=== PATIENT | male | born 1975 | race Caucasian/White ===

== ENCOUNTER 2021-11-12 20:24 | Inpatient (IN) | payer BC, OTHER ==
[2021-11-12] MEDS ORDERED: Lorazepam 2 MG/ML VIAL ONE (20:50)
[2021-11-12 20:59] LABS: #Lymphocytes 0.3 thou/uL (1.20-3.40); #Neutrophils 10.2 thou/uL (1.40-6.50); %Basophils 0.4 % (0.0-1.0); %Eosinophils 0.4 % (0.0-10.0); %Lymphocytes 2.9 % (21.0-51.0); %Monocytes 8.4 % (0.0-10.0); Hemoglobin 12.9 g/dL (14.0-18.0); Mean Corpuscular HGB CONC 33.8 g/dL (32.0-36.0); Mean Corpuscular Hemoglobin 32.3 pg (27.0-31.0); Mean Corpuscular Volume 95.5 fL (78.0-98.0); Platelet Count 143 thou/uL (130-400); RBC Distribution Width 12.6 % (11.5-14.5); White Blood Cell (WBC) Count 11.6 thou/uL (4.8-10.8)
[2021-11-12] MEDS ORDERED: chlordiazePOXIDE HCl 25 MG CAP PO SCH (21:15)
[2021-11-12 21:19] LABS: ALT (SGPT) 101 U/L (8-55); AST (SGOT) 143 U/L (5-34); Albumin 4.6 g/dL (3.5-5.0); Alkaline Phosphatase 66 U/L (40-110); Anion Gap 20 mmol/L (10-20); BUN (Urea Nitrogen) 7 mg/dL (8.9-20.6); Calc. Creatinine Clearance 0 mL/min (70-130); Calcium 10.2 mg/dL (7.8-10.44); Carbon Dioxide 21 mmol/L (22-29); Chloride 100 mmol/L (98-107); Glucose 185 mg/dL (70-105); Potassium 3.7 mmol/L (3.5-5.1); Protein, Total 7.6 g/dL (6.0-8.3); Sodium 137 mmol/L (136-145)
[2021-11-12] MEDS ORDERED: cefTRIAXone\\ROCEPHIN 2 GM VIAL ONE ×2 (21:40→21:41)
[2021-11-12] MEDS ORDERED: Vancomycin HCl 500 MG VIAL ONE (22:30)
[2021-11-13 00:01] LABS: Lactic Acid 1.6 mmol/L (0.5-2.2)
[2021-11-13 00:46] LABS: Bilirubin Negative (Negative); Blood, Urine Negative (Negative); Clarity Clear (Clear); Glucose, Urine (Dipstick) Normal (Negative); Ketone, Urine Trace mg/dL (Negative); Leukocyte Negative Leu/uL (Negative); Nitrite Negative (Negative); Protein, Urine (Dipstick) 10 mg/dL (Neg-Trace); Specific Gravity, Urine 1.006 (1.002-1.036); Urobilinogen Normal mg/dL (Less than 2)
[2021-11-13 00:55] LABS: Amphetamine Not Detected (NotDetected); Barbiturates Screen Not Detected (NotDetected); Benzodiazepine Screen Detected (NotDetected); Cocaine Metabolite Screen Not Detected (NotDetected); Methadone Not Detected (NotDetected); Methamphetamine Not Detected (NotDetected); Opiate Screen Not Detected (NotDetected); Oxycodone Screen Not Detected (NotDetected); Phencyclidine (PCP) Not Detected (NotDetected); THC/Cannabinoid Screen Not Detected (NotDetected); Tricyclic Screen Not Detected (NotDetected)
[2021-11-13] MEDS ORDERED: chlordiazePOXIDE HCl 25 MG CAP PO PRN (02:54)
[2021-11-13] MEDS ORDERED: Ondansetron PF 4 MG/2 ML Vial IVP PRN ×2 (03:00→09:25)
[2021-11-13] MEDS ORDERED: Ondansetron ODT 4 MG TAB SL PRN (03:00)
[2021-11-13] MEDS ORDERED: Sodium Chloride 0.9% 1,000 ML IV SCH (03:00)
[2021-11-13] MEDS ORDERED: Acetaminophen 325 MG TAB PO PRN ×3 (03:00→09:28)
[2021-11-13] MEDS ORDERED: Acetaminophen 325 MG TAB ONE (07:35)
[2021-11-13] MEDS ORDERED: Calcium Carbonate 500 MG ChewTAB PO PRN (09:25)
[2021-11-13] MEDS ORDERED: Senokot S 8.6-50 MG TAB PO PRN (09:25)
[2021-11-13] MEDS ORDERED: Ondansetron ODT 4 MG TAB PO PRN (09:25)
[2021-11-13] MEDS ORDERED: Lorazepam 1 MG TAB PO PRN (09:30)
[2021-11-13] MEDS ORDERED: Electrolyte Replacement Protocol 1 EACH FS SCH (09:30)
[2021-11-13] MEDS ORDERED: Multivitamins, Adult 10 ML, Folic Acid 1 MG in Dextrose 5 %-0.45 % NaCl 1,000 ML IV SCH (10:00)
[2021-11-13 10:19] LABS: Anion Gap 11 mmol/L (10-20); BUN (Urea Nitrogen) 6 mg/dL (8.9-20.6); CRP (Inflammatory) 6.78 mg/dL (= or < 0.5); Calc. Creatinine Clearance 0 mL/min (70-130); Calcium 8.7 mg/dL (7.8-10.44); Carbon Dioxide 26 mmol/L (22-29); Chloride 105 mmol/L (98-107); Glucose 96 mg/dL (70-105); Potassium 3.4 mmol/L (3.5-5.1); Sodium 139 mmol/L (136-145)
[2021-11-13 10:30] LABS: Magnesium 2.1 mg/dL (1.6-2.6); Phosphorus 4.1 mg/dL (2.3-4.7)
[2021-11-13] MEDS ORDERED: Lorazepam 1 MG TAB ONE ×2 (11:03→16:32)
[2021-11-13] MEDS: Lorazepam 1 MG TAB PO SCH ×3 (11:12→21:58)
[2021-11-13] MEDS ORDERED: Multivitamins, Adult 10 ML, Folic Acid 1 MG, Thiamine HCl 100 MG in Dextrose 5 %-0.45 %... IV SCH (12:00)
[2021-11-13 12:10] LABS: SARS-CoV-2 PCR by NAA Not Detected (NotDetected)
[2021-11-13] MEDS ORDERED: Potassium Chloride 20 MEQ TAB ONE ×2 (13:23→17:15)
[2021-11-13] MEDS: Potassium Chloride 20 MEQ TAB PO SCH ×2 (13:38→17:19)
[2021-11-13 20:28] VITALS: BMI 25.2
[2021-11-13] MEDS: Famotidine 20 MG TAB PO SCH (20:47)
[2021-11-13] MEDS: Enoxaparin Sodium 40 MG/0.4 ML SYRINGE SC SCH (20:47)
[2021-11-13] MEDS ORDERED: cefTRIAXone\\ROCEPHIN 2 GM in Sodium Chloride 0.9% 100 ML IVPB SCH (21:00)
[2021-11-13] MEDS: NS 0.9% w/ 20 MEQ KCL 1,000 ML/1,000 ML BAG IV SCH (22:00)
[2021-11-14] MEDS: Lorazepam 1 MG TAB PO SCH ×3 (04:39→17:11)
[2021-11-14 05:50] LABS: ALT (SGPT) 60 U/L (8-55); AST (SGOT) 64 U/L (5-34); Albumin 3.7 g/dL (3.5-5.0); Alkaline Phosphatase 53 U/L (40-110); Anion Gap 14 mmol/L (10-20); BUN (Urea Nitrogen) 6 mg/dL (8.9-20.6); Bilirubin, Total 0.6 mg/dL (0.2-1.2); Calc. Creatinine Clearance 143 mL/min (70-130); Calcium 9.1 mg/dL (7.8-10.44); Carbon Dioxide 24 mmol/L (22-29); Chloride 106 mmol/L (98-107); Globulin 2.7 g/dL (2.4-3.5); Glucose 91 mg/dL (70-105); Potassium 3.5 mmol/L (3.5-5.1); Protein, Total 6.4 g/dL (6.0-8.3); Sodium 140 mmol/L (136-145)
[2021-11-14 05:52] LABS: Band 17 % (5-11); Hemoglobin 11.9 g/dL (14.0-18.0); Lymphocytes 14 % (21-51); MDiff Complete? YES; Mean Corpuscular HGB CONC 33.3 g/dL (32.0-36.0); Mean Corpuscular Hemoglobin 32.6 pg (27.0-31.0); Mean Corpuscular Volume 97.9 fL (78.0-98.0); Mean Platelet Volume 6.8 fL (7.4-10.4); Monocytes 11 % (0-10); Neutrophil 57 % (42-75); Platelet Count 133 thou/uL (130-400); RBC Distribution Width 12.4 % (11.5-14.5); Reactive Lymphocytes 1 % (0-10); Red Blood Cell (RBC) Count 3.65 mill/uL (4.70-6.10); White Blood Cell (WBC) Count 7.8 thou/uL (4.8-10.8)
[2021-11-14] MEDS: Multivit, Therapeutic 1 TAB PO SCH (08:28)
[2021-11-14] MEDS: Folic Acid 1 MG TAB PO SCH (08:28)
[2021-11-14] MEDS: Thiamine HCl 200 MG/2 ML VIAL SLOW IVP SCH (08:28)
[2021-11-14] MEDS: Thiamine 100 MG TAB PO SCH (08:28)
[2021-11-14] MEDS ORDERED: Enoxaparin Sodium 40 MG/0.4 ML SYRINGE SC SCH (09:00)
[2021-11-14] MEDS ORDERED: Lorazepam 1 MG TAB PO PRN (09:30)
[2021-11-14] MEDS: Famotidine 20 MG TAB PO SCH ×2 (10:19→20:29)
[2021-11-14] MEDS ORDERED: levETIRAcetam 500 MG TAB PO SCH (18:00)
[2021-11-14] MEDS: NS 0.9% w/ 20 MEQ KCL 1,000 ML/1,000 ML BAG IV SCH (19:32)
[2021-11-14] MEDS: levETIRAcetam 500 MG TAB PO SCH (20:29)
[2021-11-14] MEDS: Enoxaparin Sodium 40 MG/0.4 ML SYRINGE SC SCH (20:29)
[2021-11-14] MEDS: Propranolol 10 MG TAB PO PRN (20:29)
[2021-11-15] MEDS ORDERED: Potassium Chloride 20 MEQ TAB PO SCH (05:45)
[2021-11-15] MEDS ORDERED: Lorazepam 0.5 MG TAB PO SCH (09:30)
[2021-11-15] MEDS ORDERED: Lorazepam 1 MG TAB PO PRN (09:30)
[2021-11-15] MEDS: levETIRAcetam 500 MG TAB PO SCH (11:03)
[2021-11-15] MEDS: Multivit, Therapeutic 1 TAB PO SCH (11:03)
[2021-11-15] MEDS: Famotidine 20 MG TAB PO SCH (11:04)
[2021-11-15] MEDS: Folic Acid 1 MG TAB PO SCH (11:05)
[2021-11-15] MEDS: Thiamine 100 MG TAB PO SCH (11:05)
[2021-11-15] MEDS: Thiamine HCl 200 MG/2 ML VIAL SLOW IVP SCH (11:06)
[2021-11-15 11:32] LABS: ALT (SGPT) 67 U/L (8-55); AST (SGOT) 75 U/L (5-34); Albumin 4.3 g/dL (3.5-5.0); Alkaline Phosphatase 62 U/L (40-110); Bilirubin, Direct 0.3 mg/dL (0.1-0.3); Bilirubin, Total 0.6 mg/dL (0.2-1.2); Protein, Total 7.7 g/dL (6.0-8.3)
[2021-11-15 12:04] VITALS: BP 121/83; TEMP 97.6
[2021-11-15] MEDS: Propranolol 10 MG TAB PO PRN (14:09)
[2021-11-16] MEDS ORDERED: Lorazepam 0.5 MG TAB PO PRN (09:30)
== END 2021-11-15 15:45 | DRG 896 ==
LOC: ERS 20:24 → ERHOLD 22:29 → NEURO 11-13 18:37
PROVIDERS: ADMIT Internal Medicine; ATTEND Internal Medicine
PROC: HZ2ZZZZ Detoxification Services for Substance Abuse Treatment (ICD-10-PCS; principal; 2021-11-14)
DX: F10.239 Alcohol dependence with withdrawal, unspecified (principal); G92.8 Other toxic encephalopathy; L03.116 Cellulitis of left lower limb; L03.115 Cellulitis of right lower limb; N17.9 Acute kidney failure, unspecified; E87.1 Hypo-osmolality and hyponatremia; R65.10 Systemic inflammatory response syndrome (SIRS) of non-infectious origin without acute organ dysfunction; Z20.822 Contact with and (suspected) exposure to COVID-19; R56.9 Unspecified convulsions; E86.0 Dehydration; D53.9 Nutritional anemia, unspecified; G24.9 Dystonia, unspecified
CPT/HCPCS: 36415; 80048; 80053; 80076; 80306; 81003; 83605; 83735; 84100; 85025; 86140; 87040; 93005; 93970; J0696; J1650; J2060; J3370; J3411; J3480; J3490; J7042; J7050; U0003; U0005

== ENCOUNTER 2022-06-22 16:38 | Inpatient (IN) | payer BC, SELFPAY ==
[2022-06-22] MEDS ORDERED: Pantoprazole 40 MG VIAL ONE (17:15)
[2022-06-22] MEDS ORDERED: Lidocaine Viscous Sol 2% 15 ml UD Cup ONE (17:15)
[2022-06-22] MEDS ORDERED: Mag-Al 1200 mg/1200 mg/30 ML UDCUP ONE (17:15)
[2022-06-22] MEDS ORDERED: Midazolam HCl 2 mg/2 ml Vial ONE (17:15)
[2022-06-22 17:42] LABS: #Lymphocytes 1.3 thou/uL (1.20-3.40); #Monocytes 0.8 thou/uL (0.11-0.59); #Neutrophils 3.9 thou/uL (1.40-6.50); %Basophils 0.7 % (0.0-1.0); %Eosinophils 0.4 % (0.0-10.0); %Lymphocytes 20.9 % (21.0-51.0); %Neutrophils 65.1 % (42.0-75.0); Hemoglobin 8.7 g/dL (14.0-18.0); Mean Corpuscular HGB CONC 34.5 g/dL (32.0-36.0); Mean Corpuscular Hemoglobin 33.8 pg (27.0-31.0); Mean Corpuscular Volume 98.1 fL (78.0-98.0); Mean Platelet Volume 7.6 fL (7.4-10.4); Platelet Count 144 thou/uL (130-400); RBC Distribution Width 11.9 % (11.5-14.5); Red Blood Cell (RBC) Count 2.57 mill/uL (4.70-6.10); White Blood Cell (WBC) Count 6.1 thou/uL (4.8-10.8)
[2022-06-22] MEDS ORDERED: chlordiazePOXIDE HCl 25 MG CAP PO SCH ×2 (17:45→21:00)
[2022-06-22 17:53] LABS: PTT 26.4 sec (22.9-36.1); Prothrombin Time 13.6 sec (12.0-14.7)
[2022-06-22 18:01] LABS: Acetaminophen Less than 10.0 mcg/mL (10.0-30.0); Alcohol 226 mg/dL (Less than 10); Salicylate Less than 8.0 mg/dL (15.0-30.0)
[2022-06-22 18:03] LABS: ALT (SGPT) 77 U/L (8-55); AST (SGOT) 80 U/L (5-34); Albumin 4.4 g/dL (3.5-5.0); Alkaline Phosphatase 46 U/L (40-110); Anion Gap 20 mmol/L (10-20); BUN (Urea Nitrogen) 14 mg/dL (8.9-20.6); Bilirubin, Total 0.8 mg/dL (0.2-1.2); Calc. Creatinine Clearance 0 mL/min (70-130); Calcium 9.1 mg/dL (7.8-10.44); Carbon Dioxide 23 mmol/L (22-29); Chloride 90 mmol/L (98-107); Estimated GFR 112; Globulin 2.4 g/dL (2.4-3.5); Glucose 92 mg/dL (70-105); Lipase 50 U/L (8-78); Protein, Total 6.8 g/dL (6.0-8.3); Sodium 130 mmol/L (136-145)
[2022-06-22 18:14] LABS: Potassium 2.8 mmol/L (3.5-5.1)
[2022-06-22] MEDS ORDERED: Midazolam HCl 2 mg/2 ml Vial IVP SCH (19:15)
[2022-06-22] MEDS ORDERED: Potassium Chloride 40 MEQ in Sodium Chloride 0.9% 250 ML 250 ML IVPB SCH (19:15)
[2022-06-22] MEDS ORDERED: Lidocaine 2% Viscous Solution 10 ML, Aluminum & Magnesium Hydroxide 30 ML SSW SCH (19:15)
[2022-06-22] MEDS ORDERED: Sodium Chloride 0.45% 1,000 ML IV SCH (19:15)
[2022-06-22] MEDS ORDERED: Sodium Chloride 0.9% 1,000 ML IV SCH (19:15)
[2022-06-22] MEDS ORDERED: Ondansetron ODT 4 MG TAB PO PRN (20:07)
[2022-06-22] MEDS ORDERED: Lorazepam 1 MG TAB PO PRN (20:07)
[2022-06-22] MEDS ORDERED: Lorazepam 2 MG/ML VIAL IM PRN (20:07)
[2022-06-22] MEDS ORDERED: Electrolyte Replacement Protocol 1 EACH FS SCH (20:15)
[2022-06-22] MEDS ORDERED: Lorazepam 1 MG TAB PO SCH (20:15)
[2022-06-22 20:38] LABS: Hemoglobin 7.9 g/dL (14.0-18.0); Mean Corpuscular Hemoglobin 33.7 pg (27.0-31.0); Mean Corpuscular Volume 99.1 fL (78.0-98.0); Mean Platelet Volume 6.9 fL (7.4-10.4); Platelet Count 108 thou/uL (130-400); Red Blood Cell (RBC) Count 2.35 mill/uL (4.70-6.10); White Blood Cell (WBC) Count 4.1 thou/uL (4.8-10.8)
[2022-06-22 21:26] LABS: SARS-CoV-2 NAA Rapid Test Not Detected (NotDetected)
[2022-06-22] MEDS ORDERED: Potassium Chloride 20 MEQ TAB PO SCH (23:00)
[2022-06-22] MEDS: Lactated Ringer's 1,000 ML IV SCH (23:01)
[2022-06-22] MEDS: Pantoprazole 40 MG VIAL IVP SCH (23:02)
[2022-06-22] MEDS: Thiamine HCl 200 MG/2 ML VIAL SLOW IVP SCH (23:06)
[2022-06-23 00:49] LABS: Hemoglobin 7.8 g/dL (14.0-18.0); Mean Platelet Volume 7.2 fL (7.4-10.4); Platelet Count 113 thou/uL (130-400); RBC Distribution Width 11.9 % (11.5-14.5); Red Blood Cell (RBC) Count 2.22 mill/uL (4.70-6.10); White Blood Cell (WBC) Count 3.2 thou/uL (4.8-10.8)
[2022-06-23 01:18] LABS: Anion Gap 16 mmol/L (10-20); BUN (Urea Nitrogen) 10 mg/dL (8.9-20.6); Calc. Creatinine Clearance 0 mL/min (70-130); Calcium 8.7 mg/dL (7.8-10.44); Carbon Dioxide 24 mmol/L (22-29); Chloride 103 mmol/L (98-107); Estimated GFR 114; Glucose 82 mg/dL (70-105); Sodium 139 mmol/L (136-145)
[2022-06-23] MEDS ORDERED: Octreotide Acetate 1,000 mcg/ml Multi-Dose Vial IV SCH (01:45)
[2022-06-23] MEDS ORDERED: Octreotide Acetate 1,250 MCG in Sodium Chloride 0.9% 250 ML 250 ML IVPB SCH (01:45)
[2022-06-23] MEDS ORDERED: Octreotide Acetate 100 MCG/ML VIAL SLOW IVP SCH (01:45)
[2022-06-23] MEDS: chlordiazePOXIDE HCl 25 MG CAP PO SCH ×6 (04:55→21:19)
[2022-06-23 04:58] LABS: #Lymphocytes 1.2 thou/uL (1.20-3.40); #Monocytes 0.3 thou/uL (0.11-0.59); #Neutrophils 1.4 thou/uL (1.40-6.50); %Basophils 1.2 % (0.0-1.0); %Eosinophils 0.9 % (0.0-10.0); %Lymphocytes 41.3 % (21.0-51.0); %Monocytes 9.7 % (0.0-10.0); %Neutrophils 46.8 % (42.0-75.0); Hemoglobin 7.4 g/dL (14.0-18.0); Mean Corpuscular HGB CONC 33.9 g/dL (32.0-36.0); Mean Corpuscular Hemoglobin 33.9 pg (27.0-31.0); Mean Platelet Volume 7.2 fL (7.4-10.4); Platelet Count 111 thou/uL (130-400); Red Blood Cell (RBC) Count 2.18 mill/uL (4.70-6.10); White Blood Cell (WBC) Count 2.9 thou/uL (4.8-10.8)
[2022-06-23 05:13] LABS: ALT (SGPT) 80 U/L (8-55); AST (SGOT) 142 U/L (5-34); Albumin 3.8 g/dL (3.5-5.0); Alcohol Less than 10 mg/dL (Less than 10); Alkaline Phosphatase 37 U/L (40-110); Anion Gap 14 mmol/L (10-20); BUN (Urea Nitrogen) 9 mg/dL (8.9-20.6); Bilirubin, Total 0.8 mg/dL (0.2-1.2); Calc. Creatinine Clearance 0 mL/min (70-130); Calcium 8.6 mg/dL (7.8-10.44); Carbon Dioxide 25 mmol/L (22-29); Chloride 105 mmol/L (98-107); Estimated GFR 115; Globulin 1.9 g/dL (2.4-3.5); Glucose 81 mg/dL (70-105); Potassium 4.2 mmol/L (3.5-5.1); Protein, Total 5.7 g/dL (6.0-8.3); Sodium 140 mmol/L (136-145)
[2022-06-23] MEDS: Lactated Ringer's 1,000 ML IV SCH ×3 (05:17→22:33)
[2022-06-23 08:43] LABS: Amphetamine Not Detected (NotDetected); Barbiturates Screen Not Detected (NotDetected); Benzodiazepine Screen Detected (NotDetected); Cocaine Metabolite Screen Not Detected (NotDetected); Methadone Not Detected (NotDetected); Methamphetamine Not Detected (NotDetected); Opiate Screen Not Detected (NotDetected); Oxycodone Screen Not Detected (NotDetected); Phencyclidine (PCP) Not Detected (NotDetected); THC/Cannabinoid Screen Not Detected (NotDetected); Tricyclic Screen Not Detected (NotDetected)
[2022-06-23] MEDS: Folic Acid 1 MG TAB PO SCH (09:31)
[2022-06-23] MEDS: Multivit, Therapeutic 1 TAB PO SCH (09:31)
[2022-06-23] MEDS: Pantoprazole 40 MG VIAL IVP SCH ×2 (09:31→21:19)
[2022-06-23] MEDS ORDERED: chlordiazePOXIDE HCl 25 MG CAP PO SCH (12:00)
[2022-06-23 15:37] LABS: Mean Corpuscular HGB CONC 33.5 g/dL (32.0-36.0); Mean Corpuscular Hemoglobin 34.1 pg (27.0-31.0); Mean Platelet Volume 7.1 fL (7.4-10.4); Platelet Count 139 thou/uL (130-400); Red Blood Cell (RBC) Count 2.35 mill/uL (4.70-6.10)
[2022-06-23] MEDS ORDERED: Fentanyl 100 MCG/2 ML VIAL ONE (15:44)
[2022-06-23] MEDS ORDERED: SUGAMMADEX SODIUM 200 MG/2 ML VIAL ONE (15:45)
[2022-06-23 15:58] LABS: Anion Gap 17 mmol/L (10-20); BUN (Urea Nitrogen) 9 mg/dL (8.9-20.6); Calc. Creatinine Clearance 0 mL/min (70-130); Calcium 8.7 mg/dL (7.8-10.44); Carbon Dioxide 22 mmol/L (22-29); Chloride 102 mmol/L (98-107); Estimated GFR 111; Glucose 94 mg/dL (70-105); Potassium 4.3 mmol/L (3.5-5.1); Sodium 137 mmol/L (136-145)
[2022-06-23] MEDS ORDERED: PROPOFOL 200 MG/20 ML VIAL ONE (17:16)
[2022-06-23] MEDS ORDERED: Ondansetron PF 4 MG/2 ML Vial ONE (17:16)
[2022-06-23] MEDS ORDERED: Lidocaine 1% MPF 2 ML VIAL ONE (17:16)
[2022-06-23] MEDS ORDERED: Succinylcholine 200 MG/10 ml SYRINGE FS ONE (17:16)
[2022-06-23] MEDS ORDERED: Dexamethasone 20 MG/5 ML VIAL ONE (17:16)
[2022-06-23] MEDS ORDERED: Rocuronium Bromide 10 MG/ML (10ML VIAL) ONE (17:16)
[2022-06-23] MEDS ORDERED: Lorazepam 1 MG TAB PO PRN (20:07)
[2022-06-23 21:01] LABS: Potassium 4.4 mmol/L (3.5-5.1)
[2022-06-23] MEDS: Thiamine HCl 200 MG/2 ML VIAL SLOW IVP SCH (21:19)
[2022-06-24] MEDS: chlordiazePOXIDE HCl 25 MG CAP PO SCH ×4 (03:19→21:13)
[2022-06-24] MEDS: Lactated Ringer's 1,000 ML IV SCH ×2 (03:25→10:15)
[2022-06-24 04:41] LABS: #Eosinphils 0.1 thou/uL (0.0-0.7); #Lymphocytes 0.6 thou/uL (1.20-3.40); #Monocytes 0.3 thou/uL (0.11-0.59); #Neutrophils 3.4 thou/uL (1.40-6.50); %Basophils 0.5 % (0.0-1.0); %Eosinophils 1.5 % (0.0-10.0); %Lymphocytes 14.2 % (21.0-51.0); %Monocytes 7.2 % (0.0-10.0); %Neutrophils 76.5 % (42.0-75.0); Hemoglobin 7.7 g/dL (14.0-18.0); Mean Corpuscular Hemoglobin 34.3 pg (27.0-31.0); Mean Platelet Volume 6.8 fL (7.4-10.4); Platelet Count 144 thou/uL (130-400); RBC Distribution Width 11.9 % (11.5-14.5); Red Blood Cell (RBC) Count 2.25 mill/uL (4.70-6.10); White Blood Cell (WBC) Count 4.5 thou/uL (4.8-10.8)
[2022-06-24 05:04] LABS: ALT (SGPT) 80 U/L (8-55); AST (SGOT) 106 U/L (5-34); Albumin 3.7 g/dL (3.5-5.0); Alkaline Phosphatase 41 U/L (40-110); Anion Gap 13 mmol/L (10-20); BUN (Urea Nitrogen) 7 mg/dL (8.9-20.6); Bilirubin, Total 0.5 mg/dL (0.2-1.2); Calc. Creatinine Clearance 0 mL/min (70-130); Calcium 8.7 mg/dL (7.8-10.44); Carbon Dioxide 26 mmol/L (22-29); Chloride 104 mmol/L (98-107); Estimated GFR 111; Glucose 146 mg/dL (70-105); Potassium 4.2 mmol/L (3.5-5.1); Protein, Total 5.7 g/dL (6.0-8.3); Sodium 139 mmol/L (136-145)
[2022-06-24] MEDS: Folic Acid 1 MG TAB PO SCH (08:36)
[2022-06-24] MEDS: Multivit, Therapeutic 1 TAB PO SCH (08:36)
[2022-06-24] MEDS: Pantoprazole 40 MG VIAL IVP SCH (08:37)
[2022-06-24] MEDS ORDERED: Lorazepam 1 MG TAB PO PRN (20:07)
[2022-06-24] MEDS ORDERED: Lorazepam 0.5 MG TAB PO SCH (20:15)
[2022-06-24] MEDS: Thiamine HCl 200 MG/2 ML VIAL SLOW IVP SCH (21:10)
[2022-06-25 04:33] LABS: #Lymphocytes 1.4 thou/uL (1.20-3.40); #Monocytes 0.4 thou/uL (0.11-0.59); #Neutrophils 2.2 thou/uL (1.40-6.50); %Basophils 0.3 % (0.0-1.0); %Eosinophils 1.1 % (0.0-10.0); %Lymphocytes 33.9 % (21.0-51.0); %Monocytes 10.6 % (0.0-10.0); %Neutrophils 54.1 % (42.0-75.0); Hemoglobin 7.2 g/dL (14.0-18.0); Mean Corpuscular HGB CONC 33.6 g/dL (32.0-36.0); Mean Platelet Volume 6.9 fL (7.4-10.4); Platelet Count 174 thou/uL (130-400); RBC Distribution Width 12.5 % (11.5-14.5); Red Blood Cell (RBC) Count 2.13 mill/uL (4.70-6.10); White Blood Cell (WBC) Count 4.1 thou/uL (4.8-10.8)
[2022-06-25 04:55] LABS: ALT (SGPT) 87 U/L (8-55); AST (SGOT) 138 U/L (5-34); Albumin 3.7 g/dL (3.5-5.0); Alkaline Phosphatase 46 U/L (40-110); Anion Gap 12 mmol/L (10-20); BUN (Urea Nitrogen) 8 mg/dL (8.9-20.6); Bilirubin, Total 0.3 mg/dL (0.2-1.2); Calc. Creatinine Clearance 0 mL/min (70-130); Calcium 8.7 mg/dL (7.8-10.44); Carbon Dioxide 26 mmol/L (22-29); Chloride 106 mmol/L (98-107); Estimated GFR 107; Glucose 114 mg/dL (70-105); Potassium 3.3 mmol/L (3.5-5.1); Protein, Total 5.7 g/dL (6.0-8.3); Sodium 141 mmol/L (136-145)
[2022-06-25] MEDS ORDERED: Potassium Chloride 20 MEQ TAB PO SCH ×2 (06:00→11:45)
[2022-06-25] MEDS ORDERED: Acetaminophen 325 MG TAB PO SCH (09:00)
[2022-06-25] MEDS ORDERED: chlordiazePOXIDE HCl 25 MG CAP PO SCH (09:00)
[2022-06-25] MEDS: Multivit, Therapeutic 1 TAB PO SCH (09:48)
[2022-06-25] MEDS: Folic Acid 1 MG TAB PO SCH (09:48)
[2022-06-25 10:54] LABS: Hemoglobin 8.2 g/dL (14.0-18.0); Mean Corpuscular Hemoglobin 33.5 pg (27.0-31.0); Mean Platelet Volume 6.4 fL (7.4-10.4); Platelet Count 184 thou/uL (130-400); RBC Distribution Width 12.7 % (11.5-14.5); Red Blood Cell (RBC) Count 2.46 mill/uL (4.70-6.10); White Blood Cell (WBC) Count 4.6 thou/uL (4.8-10.8)
[2022-06-25 12:40] VITALS: BP 104/62; TEMP 97.6
[2022-06-25] MEDS ORDERED: Lorazepam 0.5 MG TAB PO PRN (20:07)
[2022-06-25] MEDS ORDERED: Thiamine 100 MG TAB PO SCH (21:00)
== END 2022-06-25 14:50 | disposition home or self-care (01) | DRG 369 ==
LOC: ERS 16:38 → ERHOLD 18:58 → OBSVTOIN 20:07 → 2NO 22:17
PROVIDERS: ADMIT Family Medicine; ATTEND Family Medicine
PROC: 0W3P8ZZ Control Bleeding in Gastrointestinal Tract, Via Natural or Artificial Opening Endoscopic (ICD-10-PCS; principal; 2022-06-23)
DX: K22.6 Gastro-esophageal laceration-hemorrhage syndrome (principal); E87.1 Hypo-osmolality and hyponatremia; F10.239 Alcohol dependence with withdrawal, unspecified; Z20.822 Contact with and (suspected) exposure to COVID-19; F10.20 Alcohol dependence, uncomplicated; F41.9 Anxiety disorder, unspecified; G24.9 Dystonia, unspecified; E87.6 Hypokalemia; T14.91XA Suicide attempt, initial encounter; F32.A Depression, unspecified; K70.30 Alcoholic cirrhosis of liver without ascites
CPT/HCPCS: 36415; 71045; 80053; 80306; 80307; 82140; 83690; 85025; 85610; 85730; 86850; 86900; 86901; 93005; 94760; C9113; J1100; J2250; J2354; J2405; J2704; J3010; J3411; J7050; J7120; U0002